=== PATIENT | male | born 1960 | race Caucasian/White ===

== ENCOUNTER 2019-02-13 20:45 | Inpatient (IN) | payer BC, MEDICARE ==
[~2019-02-13] VITALS: Ht 180.3 cm; Wt 63.5 kg
[2019-02-13] MEDS ORDERED: ASPIRIN 81 MG TAB.CHEW ONE (21:12)
[2019-02-13] MEDS ORDERED: ASPIRIN 81 MG TAB.CHEW PO ONE (21:15)
[2019-02-13 21:51] LABS: BASO % 0 % (0-3); EOS # 0.1 x10^3/uL (0.0-0.7); EOS % 1 % (0-3); HEMATOCRIT 44.2 % (39.0-53.0); HEMOGLOBIN 14.6 g/dL (13.0-17.5); LYMPH # 1.6 x10^3/uL (1.0-4.8); LYMPH % 16 % (24-48); MEAN CORPUSCULAR HEMOGLOBIN 30 pg (25-35); MEAN CORPUSCULAR HGB CONC 33 g/dL (31-37); MEAN CORPUSCULAR VOLUME 92 fL (79-100); MONO # 0.7 x10^3/uL (0.0-1.1); MONO % 8 % (0-9); NEUT # 7.2 x10^3uL (1.8-7.7); NEUT % 75 % (31-73); PLATELET COUNT 197 x10^3/uL (140-400); RED BLOOD COUNT 4.83 x10^6/uL (4.30-5.70); RED CELL DISTRIBUTION WIDTH 13.6 % (11.5-14.5); WHITE BLOOD COUNT 9.6 x10^3/uL (4.0-11.0)
--- NOTE | 2019-02-13 21:58 | PHYS DOC ---
Past History Past Medical History: High Cholesterol, Hyperthyroid Smoking: Non-smoker, Quit Greater Than 1 Year Additional Smoking Information: Uses E-cigarettes Alcohol Use: Rarely Drug Use: None Adult General Chief Complaint Chief Complaint: CHEST PAIN HPI HPI Patient is a 8-year-old male presents with chest pain that got worse with exertion. Started when he was sitting watching TV this evening. He was diaphoretic. It lasted approximately 45 minutes. It is mild now. No radiation of the discomfort. No nausea or vomiting. Patient did take an aspirin prior to arrival.[] Review of Systems Review of Systems Constitutional: Denies fever or chills [] Eyes: Denies change in visual acuity, redness, or eye pain [] HENT: Denies nasal congestion or sore throat [] Respiratory: Denies cough or shortness of breath [] Cardiovascular: No additional information not addressed in HPI [] GI: Denies abdominal pain, nausea, vomiting, bloody stools or diarrhea [] : Denies dysuria or hematuria [] Musculoskeletal: Denies back pain or joint pain [] Integument: Denies rash or skin lesions [] Neurologic: Denies headache, focal weakness or sensory changes [] Endocrine: Denies polyuria or polydipsia [] All other systems were reviewed and found to be within normal limits, except as documented in this note. Current Medications Current Medications Current Medications Medications (Trade) Dose Ordered Sig/Sid Start Time Stop Time Status Last Admin Dose Admin Aspirin (Children'S Aspirin) 81 mg STK-MED ONCE 02/13/19 21:12 02/13/19 21:12 DC Physical Exam Physical Exam Constitutional: Well developed, well nourished, no acute distress, non-toxic appearance. [] HENT: Normocephalic, atraumatic, bilateral external ears normal, oropharynx moist, no oral exudates, nose normal. [] Eyes: PERRLA, EOMI, conjunctiva normal, no discharge. [] Neck: Normal range of motion, no tenderness, supple, no stridor. [] Cardiovascular:Heart rate regular rhythm, no murmur [] Lungs & Thorax: Bilateral breath sounds clear to auscultation [] Abdomen: Bowel sounds normal, soft, no tenderness, no masses, no pulsatile masses. [] Skin: Warm, dry, no erythema, no rash. [] Back: No tenderness, no CVA tenderness. [] Extremities: No tenderness, no cyanosis, no clubbing, ROM intact, no edema. [] Neurologic: Alert and oriented X 3, normal motor function, normal sensory function, no focal deficits noted. [] Psychologic: Affect normal, judgement normal, mood normal. [] Current Patient Data Lab Results Laboratory Tests Test 02/13/19 21:20 White Blood Count 9.6 x10^3/uL (4.0-11.0) Red Blood Count 4.83 x10^6/uL (4.30-5.70) Hemoglobin 14.6 g/dL (13.0-17.5) Hematocrit 44.2 % (39.0-53.0) Mean Corpuscular Volume 92 fL (79-100) Mean Corpuscular Hemoglobin 30 pg (25-35) Mean Corpuscular Hemoglobin Concent 33 g/dL (31-37) Red Cell Distribution Width 13.6 % (11.5-14.5) Platelet Count 197 x10^3/uL (140-400) Neutrophils (%) (Auto) 75 % (31-73) H Lymphocytes (%) (Auto) 16 % (24-48) L Monocytes (%) (Auto) 8 % (0-9) Eosinophils (%) (Auto) 1 % (0-3) Basophils (%) (Auto) 0 % (0-3) Neutrophils # (Auto) 7.2 x10^3uL (1.8-7.7) Lymphocytes # (Auto) 1.6 x10^3/uL (1.0-4.8) Monocytes # (Auto) 0.7 x10^3/uL (0.0-1.1) Eosinophils # (Auto) 0.1 x10^3/uL (0.0-0.7) Basophils # (Auto) 0.0 x10^3/uL (0.0-0.2) EKG EKG EKG shows a sinus rhythm at 77 bpm, normal axis, QTC of 436 ms, no ST elevations. No old EKG available for comparison. Interpreted by me at 2103[] Radiology/Procedures Radiology/Procedures Chest x-ray shows no infiltrate, no effusion, no pneumothorax CT CHEST WITH CONTRAST, PULMONARY ANGIOGRAM History: Chest pain, elevated d-dimer. Comparison: None. Technique: Helical CT of the chest was performed after the administration of 90 cc of Omnipaque 350 intravenous contrast according to PE protocol. Axial and coronal reconstructions were obtained. 3-D MIP images were constructed to better evaluate the pulmonary arteries. Findings: Pulmonary arteries are adequately opacified. There is no evidence of pulmonary embolism. There is no thoracic aortic dissection. The great vessels are normal caliber. Calcified subcarinal lymph node. There are several subcentimeter mediastinal and bilateral hilar lymph nodes. The cardiac size is normal, no pericardial effusion. There is no pleural effusion. There is biapical paraseptal emphysema. There is mild upper lobe centrilobular emphysema. Mild atelectasis or scarring in the periphery of the bilateral lower lobes. There is bilateral lower lobe peribronchial thickening. Calcified granuloma left lower lobe. Small groundglass opacity in the medial left lower lobe may be infectious/inflammatory. The visualized upper abdomen is unremarkable. Old fracture of the right clavicle. There are old right rib fractures. IMPRESSION: 1. There is no CT evidence of pulmonary embolus. 2. There is bilateral lower lobe bronchitis. Small groundglass opacity in the perihilar left lower lobe may be infectious/inflammatory. 3. Mild upper lobe emphysema Chest x-ray shows no infiltrate, no effusion, no pneumothorax[][] Course & Med Decision Making Course & Med Decision Making Pertinent Labs and Imaging studies reviewed. (See chart for details) Emergency department course: Patient arrived, was placed in bed, and tolerated exam well. Aspirin was held because he had taken aspirin prior to arrival. It was confirmed his last use of ED medicines was greater than a week ago. Nitrates were held because he was having no chest discomfort. The elevated d-dimer was noted and he was transported to and from [place] with any complications. After the return of the laboratory and imaging findings, these were discussed with the patient who voiced understanding. Consultation was made with hospitalist service for admission. He was admitted in improved condition. Medical decision making: Patient with a heart score of 5 due to a suspicious sto ry, nonspecific EKG changes, and age as risk factors. There is no evidence of pneumonia based on no cough or fever despite CT findings. No evidence of pneumothorax, pulmonary embolism, dissecting thoracic aneurysm, nor esophageal rupture. Patient is being admitted for chest painrule out protocol.[] Dragon Disclaimer Dragon Disclaimer This electronic medical record was generated, in whole or in part, using a voice recognition dictation system. Departure Departure: Impression: Primary Impression: Chest pain Disposition: 09 ADMITTED INPATIENT Admitting Physician: Rishi Fleming Condition: IMPROVED HEART Score for Chest Pain PTs The HEART Score for CP Pts HEART Score for Chest Pain: HEART Score for Chest Pain Response (Comments) Value History Highly Suspicious 2 ECG Nonspecific Repolarizatio 1 Age >45 - < 65 1 Risk Factors 1 or 2 Risk Factors 1 Total 5 Risk Factors: Risk Factors: DM, Current or recent (<one month) smoker, HTN, HLP, family history of CAD, obesity. Risk Scores: Score 0 - 3: 2.5% MACE over next 6 weeks - Discharge Home Score 4 - 6: 20.3% MACE over next 6 weeks - Admit for Clinical Observation Score 7 - 10: 72.7% MACE over next 6 weeks - Early Invasive Strategies Problem Qualifiers Primary Impression: Chest pain Chest pain type: unspecified Qualified Codes: R07.9 - Chest pain, unspecified SCOTT ARGUETA DO Feb 13, 2019 21:58
[2019-02-13 22:12] LABS: AMPHETAMINE/METHAMPHETAMINE NEG (NEG); BARBITURATES NEG (NEG); BENZODIAZEPINES NEG (NEG); CANNABINOIDS POS (NEG); COCAINE NEG (NEG); METHADONE NEG (NEG); OPIATES NEG (NEG); PHENCYCLIDINE NEG (NEG)
[2019-02-13 22:13] LABS: ALBUMIN 3.7 g/dL (3.4-5.0); CALCIUM 8.8 mg/dL (8.5-10.1); CREATININE 1.2 mg/dL (0.7-1.3); GFR 62.2; MAGNESIUM 2.3 mg/dL (1.8-2.4); POTASSIUM 3.3 mmol/L (3.5-5.1); TOTAL BILIRUBIN 0.6 mg/dL (0.2-1.0); TOTAL PROTEIN 7.4 g/dL (6.4-8.2)
[2019-02-13 22:22] LABS: BACTERIA,URINE 0 /HPF (0-FEW); BILIRUBIN,URINE NEG (NEG); CLARITY,URINE CLEAR; COLOR,URINE YELLOW; GLUCOSE,URINE NEG (NEG); NITRITE,URINE NEG (NEG); SQUAMOUS EPITHELIAL CELL,UR OCC /LPF; UROBILINOGEN,URINE 0.2 mg/dL (0.2 mg/dL); WBC,URINE OCC /HPF (0-4)
[2019-02-13] MEDS ORDERED: IV NORMAL SALINE 1,000ML 1,000 ML IV ONE (22:30)
[2019-02-13] MEDS ORDERED: IOHEXOL 350 MG/ML 100 ML VIAL. IV ONE (22:30)
--- NOTE | 2019-02-13 23:28 | RAD ---
PQRS Compliance Statement: One or more of the following individualized dose reduction techniques were utilized for this examination: 1. Automated exposure control 2. Adjustment of the mA and/or kV according to patient size 3. Use of iterative reconstruction technique CT CHEST WITH CONTRAST, PULMONARY ANGIOGRAM History: Chest pain, elevated d-dimer. Comparison: None. Technique: Helical CT of the chest was performed after the administration of 90 cc of Omnipaque 350 intravenous contrast according to PE protocol. Axial and coronal reconstructions were obtained. 3-D MIP images were constructed to better evaluate the pulmonary arteries. Findings: Pulmonary arteries are adequately opacified. There is no evidence of pulmonary embolism. There is no thoracic aortic dissection. The great vessels are normal caliber. Calcified subcarinal lymph node. There are several subcentimeter mediastinal and bilateral hilar lymph nodes. The cardiac size is normal, no pericardial effusion. There is no pleural effusion. There is biapical paraseptal emphysema. There is mild upper lobe centrilobular emphysema. Mild atelectasis or scarring in the periphery of the bilateral lower lobes. There is bilateral lower lobe peribronchial thickening. Calcified granuloma left lower lobe. Small groundglass opacity in the medial left lower lobe may be infectious/inflammatory. The visualized upper abdomen is unremarkable. Old fracture of the right clavicle. There are old right rib fractures. IMPRESSION: 1. There is no CT evidence of pulmonary embolus. 2. There is bilateral lower lobe bronchitis. Small groundglass opacity in the perihilar left lower lobe may be infectious/inflammatory. 3. Mild upper lobe emphysema. Electronically signed by: Claudio Avelar MD (02/13/2019 11:25 PM) [facility]
[2019-02-14] MEDS ORDERED: ONDANSETRON PF 4 MG/2 ML VIAL. IV PRN
[2019-02-14] MEDS ORDERED: NITROGLYCERIN SUBLINGUAL 0.4 MG BOTTLE OF 25. SL PRN
[2019-02-14] MEDS ORDERED: MORPHINE SULFATE 2 MG/ML DISP.SYRIN. IV PRN
[2019-02-14] MEDS ORDERED: ACETAMINOPHEN 325 MG TABLET PO PRN
[2019-02-14 00:55] VITALS: BP 128/74
[2019-02-14] MEDS ORDERED: AMPHETAMINE PO (01:56)
[2019-02-14] MEDS ORDERED: DICL50TA4 PO (01:56)
[2019-02-14] MEDS ORDERED: FLUO15CR2 TP (01:56)
[2019-02-14] MEDS ORDERED: BACL20TA PO (01:56)
[2019-02-14] MEDS ORDERED: DEXTROAM PO (01:56)
[2019-02-14] MEDS ORDERED: SIMV40TA18 PO (01:56)
[2019-02-14] MEDS ORDERED: METH5TAB85 PO (01:56)
[2019-02-14] MEDS ORDERED: SILD100T PO (01:56)
[2019-02-14] MEDS ORDERED: LANO250L TP (01:56)
[2019-02-14] MEDS ORDERED: CAMPHOR/MENTHOL TOP (01:56)
--- NOTE | 2019-02-14 02:24 | NUR ---
The patient, [address], 58 y/o, M admitted by SAMARA BEATTY MD, was given written information regarding hospital policies, unit procedures and contact persons. Valuables were checked and noted. PT presented with chest pain since 1729, 02/13. Chest pain resolved by arrival to ER. PT admitted for r/o CP, consult to Cardiology placed. Reviewed with PT his PMH, PSH, SH, FH and medications. PT states he last took Viagra last week. PT states he "quit" smoking 2 years ago, current every day vaping.
--- NOTE | 2019-02-14 03:37 | RAD ---
CHEST PA LATERAL INDICATION: Chest pain. COMPARISON STUDY: None. FINDINGS: Lungs: Normal lung volume. No pulmonary mass or consolidation. The tracheobronchial tree and hilar structures are normal. Pleura: No pleural effusion or pneumothorax. Heart and Mediastinum: The cardiomediastinal silhouette is normal. The great vessels of the thorax are normal. IMPRESSION: No focal airspace disease. Electronically signed by: Gwyn Callejas MD (02/14/2019 3:34 AM) [facility]
[2019-02-14 05:43] VITALS: BP 119/70
--- NOTE | 2019-02-14 08:13 | PDOC2 ---
CARDIAC CONSULT DATE OF CONSULT Date Of Consult DATE: 02/14/19 TIME: 08:02 REASON FOR CONSULT Reason for Consult Chest pain REFERRING PHYSICIAN Referring Physician Dr. Schuler SOURCE Source: Chart review, Patient HPI History of Present Illness This is 58 yo male who presented secondary to chest pain. Patient reports pain began yesterday evening. Located initially in his central chest. Describes as pressure. Seem to radiated to his right chest. Associated with diaphoresis. Has had occasionally dizziness recently, but wasn't associated with the pain. No shortness of breath, palpitations, or nausea/vomiting. Took ASA at home. Pain persisted for an hour so he decided to come to the ED for further evaluation and treatment. Pain resolved prior to arrival to the ED and has not had any further overnight. 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 Cardiovascular: hyperipidemia Pulmonary: COPD GI: GERD Heme/Onc: No pertinent hx Psych: Other (ADHD) Musculoskeletal: Osteoarthritis Rheumatologic: No pertinent hx Infectious disease: No pertinent hx ENT: No pertinent hx Renal/: No pertinent hx Endocrine: No pertinent hx Dermatology: No pertinent hx PAST SURGICAL HISTORY Past Surgical History: Other (multiple fractures requiring surgical intervention ) FAMILY HISTORY Family History: Hypertension SOCIAL HISTORY Smoke: No ALCOHOL: none Drugs: Marijuana Lives: with Family CURRENT MEDICATIONS Current Medications Current Medications Aspirin (Children'S Aspirin) 324 mg 1X ONCE PO ; Start 02/13/19 at 21:15; S top 02/13/19 at 22:29; Status DC Aspirin (Children'S Aspirin) 81 mg STK-MED ONCE .ROUTE ; Start 02/13/19 at 21:12; Stop 02/13/19 at 21:12; Status DC Sodium Chloride 1,000 ml @ 1,000 mls/hr 1X ONCE IV Last administered on 02/13/19at 23:07; Start 02/13/19 at 22:30; Stop 02/13/19 at 23:29; Status DC Iohexol (Omnipaque 350 Mg/ml) 100 ml 1X ONCE IV Last administered on 02/13at 22:49; Start 02/13/19 at 22:30; Stop 02/13/19 at 22:31; Status DC Ondansetron HCl (Zofran) 4 mg PRN Q4HRS PRN IV NAUSEA/VOMITING; Start 02/14/19 at 00:00; Stop 02/14/19 at 23:59 Morphine Sulfate (Morphine 2mg Syringe) 2 mg PRN Q2HR PRN IV PAIN; Start 02/14/19 at 00:00; Stop 02/14/19 at 23:59 Acetaminophen (Tylenol) 650 mg PRN Q4HRS PRN PO FEVER; Start 02/14/19 at 0 0:00; Stop 02/14/19 at 23:59 Nitroglycerin (Nitrostat) 0.4 mg PRN Q5MIN PRN SL CHEST PAIN; Start 02/14/19 at 00:00; Stop 02/14/19 at 23:59 Active Scripts Active Reported [Camphor/Menthol] 0.5 Ml TOP QID PRN Fluocinonide-E 0.05% Cream (Fluocinonide/Emollient) 15 Gm Cream..g. 15 Gm TP BID PRN Eucerin Original Lotion (Lanolin/Mineral Oil) 250 Ml Lotion 250 Ml TP BID PRN Viagra (Sildenafil Citrate) 100 Mg Tablet 1 Tab PO PRN DAILY Tapazole (Methimazole) 5 Mg Tablet 1 Tab PO DAILY 30 Days [Amphetamine/Dextroam] 15 Mg PO BID Baclofen 20 Mg Tablet 1 Tab PO BID PRN Diclofenac Sodium 50 Mg Tablet.dr 1 Tab PO BID PRN Simvastatin 40 Mg Tablet 1 Tab PO QHS ALLERGIES Allergies: Coded Allergies: ciprofloxacin (Verified Allergy, Mild, 02/14/19) ROS Review of Systems 14 point ROS conducted with pertinent positives noted above in HPI PHYSICAL EXAM General: Alert, Oriented X3, Cooperative, No acute distress HEENT: Atraumatic, Mucous membr. moist/pink Lungs: Clear to auscultation, Normal air movement Heart: Regular rate Abdomen: Soft, No tenderness Extremities: No edema, Normal pulses Skin: No breakdown Neuro: Normal speech, Sensation intact Psych/Mental Status: Mental status NL, Mood NL MUSCULOSKELETAL: Osteoarthritic changes both hands VITALS Vital Signs Vital Signs Date Time Temp Pulse Resp B/P (MAP) Pulse Ox O2 Delivery O2 Flow Rate FiO2 02/14/19 05:43 98.2 71 18 119/70 (86) 93 Room Air LABS LABS Laboratory Tests Test 02/13/19 21:20 02/13/19 21:43 02/14/19 05:39 White Blood Count 9.6 x10^3/uL (4.0-11.0) Red Blood Count 4.83 x10^6/uL (4.30-5.70) Hemoglobin 14.6 g/dL (13.0-17.5) Hematocrit 44.2 % (39.0-53.0) Mean Corpuscular Volume 92 fL (79-100) Mean Corpuscular Hemoglobin 30 pg (25-35) Mean Corpuscular Hemoglobin Concent 33 g/dL (31-37) Red Cell Distribution Width 13.6 % (11.5-14.5) Platelet Count 197 x10^3/uL (140-400) Neutrophils (%) (Auto) 75 % (31-73) Lymphocytes (%) (Auto) 16 % (24-48) Monocytes (%) (Auto) 8 % (0-9) Eosinophils (%) (Auto) 1 % (0-3) Basophils (%) (Auto) 0 % (0-3) Neutrophils # (Auto) 7.2 x10^3uL (1.8-7.7) Lymphocytes # (Auto) 1.6 x10^3/uL (1.0-4.8) Monocytes # (Auto) 0.7 x10^3/uL (0.0-1.1) Eosinophils # (Auto) 0.1 x10^3/uL (0.0-0.7) Basophils # (Auto) 0.0 x10^3/uL (0.0-0.2) Prothrombin Time 10.4 SEC (9.4-11.4) Prothromb Time International Ratio 1.0 (0.9-1.1) Activated Partial Thromboplast Time 24 SEC (23-33) D-Dimer (Denise) 0.68 mg/L (0.00-0.50) Sodium Level 137 mmol/L (136-145) Potassium Level 3.3 mmol/L (3.5-5.1) 4.0 mmol/L (3.5-5.1) Chloride Level 100 mmol/L (98-107) Carbon Dioxide Level 27 mmol/L (21-32) Anion Gap 10 (6-14) Blood Urea Nitrogen 28 mg/dL (8-26) Creatinine 1.2 mg/dL (0.7-1.3) Estimated GFR (Cockcroft-Gault) 62.2 BUN/Creatinine Ratio 23 (6-20) Glucose Level 146 mg/dL (70-99) Calcium Level 8.8 mg/dL (8.5-10.1) Magnesium Level 2.3 mg/dL (1.8-2.4) Total Bilirubin 0.6 mg/dL (0.2-1.0) Aspartate Amino Transf (AST/SGOT) 140 U/L (15-37) Alanine Aminotransferase (ALT/SGPT) 114 U/L (16-63) Alkaline Phosphatase 99 U/L (46-116) Troponin I Quantitative < 0.017 ng/mL (0-0.055) < 0.017 ng/mL (0-0.055) LN-Zae-Z-Type Natriuretic Peptide 32 pg/mL (0-124) Total Protein 7.4 g/dL (6.4-8.2) Albumin 3.7 g/dL (3.4-5.0) Albumin/Globulin Ratio 1.0 (1.0-1.7) Lipase 301 U/L (73-393) Urine Collection Type Unknown Urine Color Yellow Urine Clarity Clear Urine pH 6.0 Urine Specific Raymond 1.025 Urine Protein Neg (NEG-TRACE) Urine Glucose (UA) Neg mg/dL (NEG) Urine Ketones (Stick) Neg mg/dL (NEG) Urine Blood Neg (NEG) Urine Nitrite Neg (NEG) Urine Bilirubin Neg (NEG) Urine Urobilinogen Dipstick 0.2 mg/dL (0.2 mg/dL) Urine Leukocyte Esterase Neg (NEG) Urine RBC 3-5 /HPF (0-2) Urine WBC Occ /HPF (0-4) Urine Squamous Epithelial Cells Occ /LPF Urine Bacteria 0 /HPF (0-FEW) Urine Opiates Screen Neg (NEG) Urine Methadone Screen Neg (NEG) Urine Barbiturates Neg (NEG) Urine Phencyclidine Screen Neg (NEG) Urine Amphetamine/Methamphetamine Neg (NEG) Urine Benzodiazepines Screen Neg (NEG) Urine Cocaine Screen Neg (NEG) Urine Cannabinoids Screen Pos (NEG) Urine Ethyl Alcohol Neg (NEG) ASSESSMENT/PLAN Assessment/Plan 1. Chest pain, atypical. AMI ruled out. 2. Hyperlipidemia; statin 3. Hypothyroidism 4. Hypokalemia 5. Elevated liver enzymes 6. H/o traumatic fall in 2013 resulting in TBI and multiple fractures requiring surgical intervention 7. Chronic pain related to above 8. Marijuana use Recommendations Lipids, TSH Echo to asses LV systolic function Will arrange for outpatient stress test. If echo WNL, may discharge from a CV standpoint. ALIYAH PRICE APRN Feb 14, 2019 08:13
[2019-02-14 10:40] VITALS: BP 116/68
--- NOTE | 2019-02-14 10:44 | HP ---
ADMIT DATE: HISTORY OF PRESENT ILLNESS: The patient is a 58-year-old male patient who presented to the Emergency Room with chest pain that got worse with exertion. He stated that he was sitting, watching TV prior to arrival to the Emergency Room, he was diaphoretic. The pain lasted for almost an hour and a half. According to him, it was rated as 8/10 in severity. He denied any nausea or vomiting. He was diaphoretic and the pain has radiated more to the right side. He did take an aspirin prior to arrival and he was extensively investigated in the Emergency Room. He has had an EKG, which showed that he was in sinus rhythm with a heart rate of 77 beats per minute, normal axis, corrected QT interval of 436 milliseconds, no ST elevation and no old EKG work available for comparison. His D-dimer was slightly elevated. Chest x-ray showed no infiltrate, effusion or pneumothorax. The CT chest with contrast showed that the patient has no CT evidence of pulmonary embolus. There is bilateral lower lobe bronchitis, small ground glass opacity in the right and perihilar left lower lobe, may be infectious/inflammatory and mild upper lobe emphysema. His first set of cardiac enzyme was less than 0.07. The patient was admitted to do 2 more sets of cardiac enzyme, consult the Cardiology team. PAST MEDICAL HISTORY: Significant for traumatic brain injury with some memory deficit, hypothyroidism, hyperlipidemia, chronic obstructive pulmonary disease, obstructive sleep apnea, osteoarthritis, degenerative disk disease, benign prostatic hypertrophy. PAST SURGICAL HISTORY: Significant for back surgery, arthroscopic surgery of the right knee, has had also colonoscopy and polypectomy. ALLERGIES: He is allergic to CIPROFLOXACIN. MEDICATIONS: He is currently on baclofen 20 mg twice a day as needed. He is on simvastatin 40 mg at bedtime, sildenafil citrate for Viagra 100 mg daily p.r.n. as needed for erectile dysfunction, diclofenac sodium 50 mg tablet 1 tablet p.o. b.i.d., methimazole for Tapazole 5 mg daily. He is on fluocinonide cream applied topically twice a day as needed for itching. He is on Eucerin cream apply topically twice a day and amphetamine and dextroamphetamine for Adderall twice a day for attention deficit. He is on camphor menthol 0.5 mL topically q.i.d. FAMILY HISTORY: He has 2 brothers and 1 sister, all younger. He does not know his biological father. His stepfather is still alive and his mother who is his real biological mother who is still alive at age of 76 and doing fairly healthy. SOCIAL HISTORY: He is , has a son and 2 daughters. He quit smoking 2 years ago. He smoked for almost 48 years. 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 REVIEW OF SYSTEMS: As per history of present illness. PHYSICAL EXAMINATION: GENERAL: On arrival to the Emergency Room, he looked well and was clearly in no apparent respiratory distress. No pallor, jaundice, cyanosis or thyromegaly. No jugular venous distention. No limb edema. VITAL SIGNS: His heart rate was 82, blood pressure was 105/63, temperature was 97.4, respiratory rate was 20, and oxygen saturation was 97%. HEAD, EYES, EARS, NOSE AND THROAT: Showed normocephalic, atraumatic. NECK: Supple. HEART: Showed normal first and second heart sounds. No gallop or murmur. CHEST: Clear to auscultation. No crepitation or rhonchi. ABDOMEN: Distended, soft, nontender. No guarding or rigidity. No organomegaly. All hernial orifice intact. Bowel sounds normal. NEUROLOGICAL: He was awake, alert, responding appropriately. All cranial nerves intact. EXTREMITIES: He moves extremities without difficulty. LABORATORY AND DIAGNOSTIC DATA: His lab work on arrival showed a serum sodium 137, potassium 3.3, chloride 100, bicarbonate 27, anion gap of 10, BUN 28, creatinine 1.2, estimated GFR was 62 mL per minute, his glucose 146, his calcium was 8.8, magnesium was 2.3. Total bilirubin and alkaline phosphatase normal. AST, ALT slightly elevated. His first set of cardiac enzymes showed troponin to be less than 0.017. Beta-natriuretic peptide was 32. Total protein was 7.4, albumin was 3.7. Lipase was 300. His white cell count was 9600, hemoglobin 14.6, hematocrit 44, MCV 92, and platelet count of 197,000. His prothrombin time was 10.4, INR of 1, aPTT was 24 and D-dimer was slightly elevated at 0.68. Urinalysis showed the urine was yellow, clear with a pH of 6, specific gravity of 1.025. The urine was negative for protein, glucose, and ketones, small amount of blood, negative for nitrite and leukocyte esterase and there are 3-5 rbc's, no wbc, and no bacteria. His toxic screen was positive for cannabinoid. His chest x-ray showed that there are no pulmonary mass or consolidation. The tracheobronchial tree and hilar structures are normal. There is no pleural effusion or pneumothorax ____. The cardiomediastinal silhouette is normal. The great vessels of the thorax are normal. Given chest pain and elevated D-dimer, he underwent CT angio of the chest, which basically showed that the patient has no CT evidence of pulmonary embolus. He has bilateral lower lobe bronchitis and mild upper lobe emphysema. PLAN: He was admitted to do 2 more sets of cardiac enzyme, consult the Cardiology team and check his fasting lipid profile. WAYLON KNUTSON MD DR: GRACIE/samantha JOB#: [id number] / [id number]
--- NOTE | 2019-02-14 10:45 | NUR ---
Notified ECHO via telephone of echocardiogram order placed for patient by cardiology. entry level automotive technician stated that they would be down this after noon to complete. Patient verbally notified.
--- NOTE | 2019-02-14 12:30 | CARD ---
MR#: [id number] Date of Study: 02/14/2019 Ordering Physician: ALIYAH PRICE, Referring Physician: ALIYAH PRICE, Tech: Emily Guerrero SAROJ APPROVED REPORT EXAM: Two-dimensional and M-mode echocardiogram with Doppler and color Doppler. Other Information Quality : Good INDICATION Chest Pain RISK FACTORS Smoking 2D DIMENSIONS Left Atrium(2D)2.9 (1.6-4.0cm)IVSd0.7 (0.7-1.1cm) Aortic Root(2D)3.1 (2.0-3.7cm)LVDd5.2 (3.9-5.9cm) LVOT Diameter2.1 (1.8-2.4cm)PWd0.8 (0.7-1.1cm) LVDs3.4 (2.5-4.0cm)FS (%) 35.1 % SV82.3 mlLVEF(%)64.1 (>50%) Aortic Valve AoV Peak Arnaldo.131.6cm/sAoV VTI22.9cm AO Peak GR.6.9mmHgAO Mean GR.4mmHg JAIMEE (VTI)2.62cm2 Mitral Valve MV E Ztwusmhd38.7cm/sMV DECEL [id number] MV A Luqessgf59.5cm/sE/A Ratio0.9 Tricuspid Valve TR P. Asgtpgxw802wx/sRAP SAPFTKSU2arJr TR Peak Gr.26prQhAFGP51gzUk LEFT VENTRICLE The left ventricle is normal size. There is normal left ventricular wall thickness. The left ventricu lar systolic function is normal and the ejection fraction is within normal range. The Ejection Fracti on is 55-60%. There is normal LV segmental wall motion. Transmitral Doppler flow pattern is Grade I-a bnormal relaxation pattern. RIGHT VENTRICLE The right ventricle is normal size. The right ventricular systolic function is normal. ATRIA The left atrium size is normal. The right atrium size is normal. The interatrial septum is intact wit h no evidence for an atrial septal defect or patent foramen ovale as noted on 2-D or Doppler imaging. AORTIC VALVE The aortic valve is not well visualized but is calcified and appears to be functioning normally by Do ppler interrogation. Doppler and Color Flow revealed no significant aortic regurgitation. There is no significant aortic valvular stenosis. MITRAL VALVE The mitral valve is calcified but opens well. There is no evidence of mitral valve prolapse. There is no mitral valve stenosis. Doppler and Color-flow revealed trace mitral regurgitation. TRICUSPID VALVE The tricuspid valve is normal in structure and function. Doppler and Color Flow revealed trace tricus pid regurgitation. The PA pressure was estimated at 26 mmHg. There is no tricuspid valve stenosis. PULMONIC VALVE The pulmonic valve is not well visualized. Doppler and Color Flow revealed no pulmonic valvular regur gitation. There is no pulmonic valvular stenosis. GREAT VESSELS The aortic root is normal in size. The ascending aorta is not well seen. The IVC is normal in size an d collapses >50% with inspiration. PERICARDIAL EFFUSION There is no evidence of significant pericardial effusion. Critical Notification Critical Value: No <Conclusion> The left ventricle is normal size. The left ventricular systolic function is normal and the ejection fraction is within normal range. The Ejection Fraction is 55-60%. Doppler and Color Flow revealed no significant aortic regurgitation. There is no significant aortic valvular stenosis. Doppler and Color-flow revealed trace mitral regurgitation. Doppler and Color Flow revealed trace tricuspid regurgitation. The PA pressure was estimated at 26 mmHg. Signed by : Devon Mar MD Electronically Approved : 02/14/2019 12:29:58
--- NOTE | 2019-02-14 14:37 | RAD ---
EXAM: CAROTID DOPPLER SONOGRAM. HISTORY: Left numbness and tingling. TECHNIQUE: Payne scale and color Doppler sonographic evaluation of the neck with spectral waveform analysis was performed and static images are submitted for review. FINDINGS: RIGHT: The peak systolic velocity within the common carotid artery is 72 cm/sec. The peak systolic velocity within the internal carotid artery is 76 cm/sec and the end diastolic velocity within the internal carotid artery is 25 cm/sec. The ICA/CCA ratio is 1.1. Grayscale images demonstrate no grayscale stenosis. LEFT: The peak systolic velocity within the common carotid artery is 84 cm/sec. The peak systolic velocity within the internal carotid artery is 86 cm/sec and the end diastolic velocity within the internal carotid artery is 27 cm/sec. The ICA/CCA ratio is 1.0. Grayscale images demonstrate no grayscale stenosis. There is antegrade flow within both vertebral arteries. IMPRESSION: 1. No evidence of hemodynamically significant stenosis. PQRS Compliance Statement - Stenosis calculations for CT, MR and conventional angiography are based upon measurement of the distal ICA diameter in accordance with the NASCET methodology. Stenosis calculations for carotid ultrasound studies are derived from validated velocity criteria which are known to correlate with the NASCET methodology. Electronically signed by: Shai Adams MD (02/14/2019 2:34 PM) [facility]
--- NOTE | 2019-02-14 14:38 | NUR ---
Discharge Note: [address] [facility] Discharge instructions and discharge home medications reviewed with Patient and a copy given. All questions have been answered and understanding verbalized. The following instructions and handouts were given: chest pain Discontinued lines and drains: Peripheral IV intact. IV D/C, TIP IN TACT. Patient discharged to home.
== END 2019-02-14 14:37 | disposition home or self-care (01) | DRG 313 ==
LOC: ER 20:45 → 1 SOUTH 23:33
PROVIDERS: ADMIT Family Medicine; ATTEND Internal Medicine
DX: R07.89 Other chest pain (principal); E78.00 Pure hypercholesterolemia, unspecified; E03.9 Hypothyroidism, unspecified; J43.9 Emphysema, unspecified; E78.5 Hyperlipidemia, unspecified; K21.9 Gastro-esophageal reflux disease without esophagitis; G47.33 Obstructive sleep apnea (adult) (pediatric); M19.90 Unspecified osteoarthritis, unspecified site; G89.29 Other chronic pain; N40.0 Benign prostatic hyperplasia without lower urinary tract symptoms; F90.9 Attention-deficit hyperactivity disorder, unspecified type; E87.6 Hypokalemia; F12.90 Cannabis use, unspecified, uncomplicated; Z88.1 Allergy status to other antibiotic agents; Z87.891 Personal history of nicotine dependence; Z82.49 Family history of ischemic heart disease and other diseases of the circulatory system
CPT/HCPCS: 36415; 71046; 71275; 80053; 80061; 80307; 81001; 83690; 83735; 83880; 84132; 84443; 84484; 85025; 85379; 85610; 85730; 93306; 93880; Q9967; 99285-25; J7030

== ENCOUNTER → 2020-02-21 | Outpatient (CLI) | payer BC, MEDICARE, OTHER ==
[~2020-02-21] MED LIST: AMPHETAMINE PO; BACL20TA PO; CAMPHOR/MENTHOL TOP; DEXTROAM PO; DICL50TA4 PO; FLUO15CR2 TP; LANO250L TP; METH5TAB85 PO; SILD100T PO; SIMV40TA18 PO
[2020-02-21 12:05] VITALS: BP 115/92
== END | disposition home or self-care (01) ==
LOC: SURG 11:59
PROVIDERS: ATTEND Anesthesiology
DX: M51.36 Other intervertebral disc degeneration, lumbar region (principal); M47.816 Spondylosis without myelopathy or radiculopathy, lumbar region; E78.5 Hyperlipidemia, unspecified; F12.90 Cannabis use, unspecified, uncomplicated; E03.9 Hypothyroidism, unspecified; M19.90 Unspecified osteoarthritis, unspecified site; G47.33 Obstructive sleep apnea (adult) (pediatric); F90.9 Attention-deficit hyperactivity disorder, unspecified type; J43.9 Emphysema, unspecified; K21.9 Gastro-esophageal reflux disease without esophagitis; Z87.891 Personal history of nicotine dependence; Z88.1 Allergy status to other antibiotic agents; Z98.1 Arthrodesis status; Z86.010 Personal history of colon polyps; Z79.899 Other long term (current) drug therapy; Z88.8 Allergy status to other drugs, medicaments and biological substances; Z82.49 Family history of ischemic heart disease and other diseases of the circulatory system
CPT/HCPCS: 99204; G0463

== ENCOUNTER → 2020-03-06 | Day surgery (SDC) | payer OTHER ==
[~2020-03-06] MED LIST changes: +0.9 % SODIUM CHLORIDE 10 ML VIAL. ONE; +DEXAMETHASONE SOD PHOS 10 MG/ML VIAL. ONE; +IOHEXOL 300 MG/ML 50 ML VIAL. ONE; +LIDOCAINE 1% PF 30 ML VIAL. ONE
[2020-03-06 12:57] VITALS: BP 123/75
== END | disposition home or self-care (01) ==
LOC: SURG 12:14
PROVIDERS: ATTEND Anesthesiology
DX: M54.16 Radiculopathy, lumbar region (principal); F90.9 Attention-deficit hyperactivity disorder, unspecified type; E78.5 Hyperlipidemia, unspecified; J43.9 Emphysema, unspecified; E03.0 Congenital hypothyroidism with diffuse goiter; F12.90 Cannabis use, unspecified, uncomplicated; M19.90 Unspecified osteoarthritis, unspecified site; K21.9 Gastro-esophageal reflux disease without esophagitis; G47.33 Obstructive sleep apnea (adult) (pediatric); Z88.8 Allergy status to other drugs, medicaments and biological substances; Z79.899 Other long term (current) drug therapy; Z88.1 Allergy status to other antibiotic agents; Z98.1 Arthrodesis status; Z82.49 Family history of ischemic heart disease and other diseases of the circulatory system; Z87.891 Personal history of nicotine dependence; Z86.010 Personal history of colon polyps
CPT/HCPCS: 62323; 72275; J1100; Q9967